=== PATIENT | female | born 1990 | race Caucasian/White ===

== ENCOUNTER → 2017-11-05 | Outpatient (REF) | payer OTHER | LOC: M LAB REF 18:50 | DX: N39.0 Urinary tract infection, site not specified (principal) ==

== ENCOUNTER → 2018-04-14 | Outpatient (REF) | payer OTHER | LOC: M LAB REF 17:52 | PROVIDERS: ATTEND Physician Assistant | DX: J02.9 Acute pharyngitis, unspecified (principal) ==

== ENCOUNTER → 2018-11-25 | Outpatient (REF) | payer OTHER | LOC: M LAB REF 19:17 | PROVIDERS: ATTEND Physician Assistant | DX: N39.0 Urinary tract infection, site not specified (principal) ==

== ENCOUNTER → 2018-12-24 | Outpatient (REF) | payer OTHER | LOC: M LAB REF 10:33 | PROVIDERS: ATTEND Physician Assistant | DX: R30.0 Dysuria (principal) ==